=== PATIENT | female | born 1955 | race Caucasian/White ===

== ENCOUNTER 2023-09-24 07:23 | Day surgery (SDC) | payer MEDICARE, SELFPAY ==
[2023-09-24 07:50] VITALS: BP 127/78; PULSE 66; RESP 16; TEMP 37; O2SAT 100
[2023-09-24] MEDS: LACTATED RINGERS 1,000 ML 42 ML IV (07:55)
--- NOTE | 2023-09-24 08:36 | P.HP_ITS ---
History of Present Illness History of Present Illness Date Patient Seen: 09/24/23 Chief complaint: Colonoscopy Narrative: Ten year screening colonoscopy [facility] Medical History (Updated 09/24/23 @ 07:50 by Mary Brar RN) Normal colonoscopy Social History Smoking Status: Never smoker alcohol intake: current Meds Home Medications and Allergies Home Medications Medication Instructions Recorded Confirmed Type No Known Home Medications 09/24/23 09/24/23 History Allergies Allergy/AdvReac Type Severity Reaction Status Date / Time No Known Drug Allergies Allergy Verified 09/24/23 07:48 Exam Vital Signs (past 8 hours): - 09/24/23 07:50 Temperature 98.6 F Pulse Rate 66 Respiratory Rate 16 Blood Pressure 127/78 Pulse Oximetry 100 Oxygen Delivery Method Room Air Oxygen Delivery Method Room Air Narrative Exam Narrative: Oropharynx free of lesions Chest clear to auscultation percussion Cardiac exam reveals no S3 or murmur Assessment & Plan Assessment & Plan narrative: Need for 10 year screening colonoscopy. Asymptomatic. Risks, benefits, alternatives have been explained.
--- NOTE | 2023-09-24 08:37 | PM.OP.COLON ---
Operative Date/Time/Diagnoses Date of procedure: 09/24/23 Pre-op diagnosis: See indication and findings Procedure & Clinicians Study performed: Colonoscopy Indications: 10 year screening Surgeon: Nichole Reddy Procedure Notes Procedure in detail: After informed consent was obtained the patient was placed in left lateral decubitus position. The video colonoscope was introduced the rectum slowly advanced cecum. Preparation was good. On slow withdrawal mucosa was carefully examined. The scope was removed. The patient tolerated procedure well. Blood loss none Complications none Sedation mac Findings 1. Normal colonoscopy to cecum Patient will need follow-up colonoscopy in 10 years.
[2023-09-24 09:01] VITALS: BP 96/56; PULSE 66; RESP 15; TEMP 36.3; O2SAT 93
[2023-09-24 09:05] VITALS: BP 91/58; PULSE 59; RESP 15; O2SAT 94
[2023-09-24 09:12] VITALS: BP 96/58; PULSE 61; RESP 11; TEMP 35.7; O2SAT 97
== END 2023-09-24 09:31 | disposition home or self-care (01) ==
PROVIDERS: PCP Physician Assistant; Referring Provider Internal Medicine Gastroenterology; Visit Provider Internal Medicine Gastroenterology
PROC: 0DJD8ZZ Inspection of Lower Intestinal Tract, Via Natural or Artificial Opening Endoscopic (ICD-10-PCS; CPT 45378; principal; 2023-09-24 08:30)
DX: Z12.11 Encounter for screening for malignant neoplasm of colon (principal)
CPT/HCPCS: G0121; J2704

== ENCOUNTER → 2024-11-15 06:56 | Outpatient (CLI) | payer MEDICARE, SELFPAY ==
--- NOTE | 2024-11-15 07:01 | DI.RAD.S_ITS ---
PROCEDURE: XR LUMBAR SPINE 2-3V INDICATIONS: Radiculopathy, lumbar region TECHNIQUE: 3 views of the lumbar spine were acquired. COMPARISON: None. FINDINGS: Bones: 5 [id number] vertebrae are present. Moderate L5-S1 disc height loss with adjacent endplate sclerosis. There is normal bony alignment. No vertebral body compression fractures. No suspicious bony lesions. Soft tissues: Overlying bowel gas pattern is normal. No suspicious soft tissue calcifications. IMPRESSION: Degenerative change at the L5-S1 level without evidence of acute bony abnormality. Dictated by: Fabricio Salomon M.D. on 11/16/2024 at 3:24 Approved by: Fabricio Salomon M.D. on 11/16/2024 at 3:25
== END ==
PROVIDERS: PCP Physician Assistant; Referring Provider Family Medicine; Visit Provider Family Medicine
DX: M47.27 Other spondylosis with radiculopathy, lumbosacral region (principal)
CPT/HCPCS: 72100